=== PATIENT | male | born 1995 | race African-American/Black ===

== ENCOUNTER 2021-04-14 08:57 | Emergency (ER) | payer OTHER ==
[~2021-04-14] VITALS: Ht 172.7 cm; Wt 68.2 kg
[2021-04-14] MEDS ORDERED: NS 1,000 ML IV ONE (09:05)
[2021-04-14 11:30] VITALS: BP 105/57
--- NOTE | 2021-04-14 20:36 | ECGEPIP ---
[facility] - ED Test Date: 2021-04-14 Pat Name: JOSHUA AVILEZ Department: Room: - Gender: Male Database Administration Associate: : [id number] Requested By: Zo Love Order Number: [id number] Reading MD: Zo Love Measurements Intervals [place] Rate: 62 P: 77 CA: 170 QRS: 79 QRSD: 84 T: 51 QT: 364 QTc: 369 Interpretive Statements Sinus rhythm with marked sinus arrhythmia No prior Electronically Signed on 04-14-2021 20:36:27 EDT by Zo Love
== END 2021-04-14 11:48 | disposition home or self-care (01) ==
LOC: EDBD 08:57 → M ED 08:57
DX: R55 Syncope and collapse (principal); F17.200 Nicotine dependence, unspecified, uncomplicated